=== PATIENT | female | born 1965 | race Caucasian/White ===

== ENCOUNTER 2021-12-26 00:03 | Emergency (ER) | payer BC ==
[2021-12-26 00:51] LABS: RED BLOOD COUNT 3.93 M/UL (4.00-5.10); WHITE BLOOD COUNT 5.4 K/UL (4.5-11.0)
[2021-12-26] MEDS ORDERED: ZANAFLEX4 MG PO (06:41)
== END 2021-12-26 07:00 | disposition home or self-care (01) ==
LOC: ER1 00:03
PROVIDERS: Student in an Organized Health Care Education/Training Program
DX: M54.10 Radiculopathy, site unspecified (principal); G89.29 Other chronic pain; R10.819 Abdominal tenderness, unspecified site; E11.9 Type 2 diabetes mellitus without complications; E78.5 Hyperlipidemia, unspecified; I10 Essential (primary) hypertension; G40.909 Epilepsy, unspecified, not intractable, without status epilepticus; Z90.49 Acquired absence of other specified parts of digestive tract; Z88.1 Allergy status to other antibiotic agents; Z88.5 Allergy status to narcotic agent
CPT/HCPCS: 80053; 81001; 83690; 85025; 96374; 96375; 99284; J1885; J2405; Q9967